=== PATIENT | male | born 1990 | race Native Hawaiian/Other Pacific Islander ===

== ENCOUNTER 2017-11-30 12:57 | Outpatient (CLI) | payer BC ==
[2017-11-30 13:19] LABS: PLATELET COUNT 232 K/uL (142-355)
[2017-11-30 13:39] LABS: POTASSIUM 4.1 mmol/L (3.6-5.2)
== END 2017-11-30 23:49 | disposition home or self-care (01) ==
LOC: LAB 12:57
PROVIDERS: Internal Medicine
DX: Z00.00 Encounter for general adult medical examination without abnormal findings (principal)
CPT/HCPCS: 36415; 80053; 80061; 81000; 84443; 85027